=== PATIENT | male | born 1980 | race Caucasian/White ===

== ENCOUNTER 2025-06-27 06:12 | Day surgery (SDC) | payer BC ==
[~2025-06-27] VITALS: Ht 177.8 cm; Wt 93.3 kg
[2025-06-27] MEDS ORDERED: ONDANSETRON 4MG 2ML VIAL As Ordered ONE (06:48)
[2025-06-27] MEDS ORDERED: LIDOCAINE 2% 100 MG/5 ML SDV (FOR ANES.) As Ordered ONE (06:48)
[2025-06-27] MEDS ORDERED: ROCURONIUM BROMIDE 50MG/5ML VIAL As Ordered ONE (06:48)
[2025-06-27] MEDS ORDERED: dexAMETHasone 4 MG/ML 1 ML VIAL As Ordered ONE (06:48)
[2025-06-27] MEDS ORDERED: SUGAMMADEX SODIUM 500 MG/5 ML VIAL As Ordered ONE (06:49)
[2025-06-27] MEDS ORDERED: MIDAZOLAM INJ 2 MG/2 ML VIAL As Ordered ONE (06:56)
[2025-06-27] MEDS: LR 1,000 ML IV SCH (06:59)
[2025-06-27] MEDS: CelecoXIB 400 MG CAP PO ONE (06:59)
[2025-06-27] MEDS: ceFAZolin SOD 2 GM IV ONCE IV ONE (07:35)
[2025-06-27] MEDS ORDERED: ACETAMINOPHEN 1000MG/100ML IV BAG As Ordered ONE (07:36)
[2025-06-27] MEDS: LIDOCAINE W/EPINEPHrine 1% 20 ML VIAL As Ordered ONE (08:17)
[2025-06-27 08:25] VITALS: BP 110/70; TEMP 97.2; O2SAT 98
== END 2025-06-27 08:43 | disposition home or self-care (01) ==
LOC: M SDC 06:12
PROVIDERS: ATTEND Surgery
DX: L72.11 Pilar cyst (principal); Z87.891 Personal history of nicotine dependence
CPT/HCPCS: 11423; 88304; J0131; J0690; J1100; J2250; J2405; J3010